=== PATIENT | female | born 1960 | race African-American/Black ===

== ENCOUNTER 2019-12-30 08:27 | Outpatient (CLI) | payer OTHER ==
--- NOTE | 2019-12-30 09:32 | CT ---
EXAM: CT Pulmonary Lung Scan PROVIDED CLINICAL HISTORY: Tobacco abuse. 30 year history of smoking. COMPARISON: None FINDINGS: Respiratory motion is present on this examination. There is volume loss present at each lung base whi ch does slightly degrade images for evaluation of pulmonary nodules. There is an approximately 5 mm nodular density seen in the posterior right lower lobe (image 79, series 8) suspicious for a small pu lmonary nodule which is difficult to evaluate due to volume loss. No definite additional discrete pulmonary nodule or mass is visualized. No pleural effusion is seen. Vascular calcifications are seen in the thoracic aorta and to a lesser extent involving the coronary arteries. Small hiatal hernia is present. Remainder of the upper abdomen demonstrates a grossly normal nonenhan tran CT appearance. Mild degenerative changes are seen in the spine. No suspicious lytic or sclerotic osseous lesion is i dentified. IMPRESSION: 1. Lung RADS category 2, suspected small 5 mm pulmonary nodule right lower lobe. Evaluation is limite d due to respiratory motion. Follow-up low-dose CT scan thorax in 6 months is recommended. 2. Small hiatal hernia. 3. Vascular calcifications.
== END 2019-12-30 08:28 | disposition home or self-care (01) ==
LOC: BICCT 08:27
PROVIDERS: ATTEND Family Medicine
DX: Z12.2 Encounter for screening for malignant neoplasm of respiratory organs (principal); F17.200 Nicotine dependence, unspecified, uncomplicated; K44.9 Diaphragmatic hernia without obstruction or gangrene; I25.10 Atherosclerotic heart disease of native coronary artery without angina pectoris; I70.0 Atherosclerosis of aorta
CPT/HCPCS: G0297

== ENCOUNTER 2020-06-28 08:09 | Outpatient (CLI) | payer OTHER | END 2020-06-28 08:10 | disposition home or self-care (01) | LOC: BICCT 08:09 | PROVIDERS: ATTEND Family Medicine | DX: R91.1 Solitary pulmonary nodule (principal); F17.210 Nicotine dependence, cigarettes, uncomplicated; R91.8 Other nonspecific abnormal finding of lung field | CPT/HCPCS: 71271 ==

== ENCOUNTER 2021-08-23 10:06 | Outpatient (CLI) | payer OTHER | END 2021-08-23 10:07 | disposition home or self-care (01) | LOC: BICCT 10:06 | PROVIDERS: ATTEND Family Medicine | DX: Z12.2 Encounter for screening for malignant neoplasm of respiratory organs (principal); F17.210 Nicotine dependence, cigarettes, uncomplicated; J44.9 Chronic obstructive pulmonary disease, unspecified; R91.1 Solitary pulmonary nodule | CPT/HCPCS: 71271 ==

== ENCOUNTER 2022-07-23 08:52 | Outpatient (CLI) | payer OTHER | END 2022-07-23 08:53 | disposition home or self-care (01) | LOC: BICMAMMO 08:52 | PROVIDERS: ATTEND Family Medicine | DX: N63.20 Unspecified lump in the left breast, unspecified quadrant (principal) | CPT/HCPCS: 77066; G0279 ==